=== PATIENT | female | born 1995 | race Caucasian/White ===

== ENCOUNTER 2016-12-30 23:41 | Emergency (ER) | payer OTHER, BC ==
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
[2016-12-30 23:56] VITALS: BP 123/81; PULSE 74; TEMP 97.5; BMI 21.0
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
[2016-12-31] MEDS ORDERED: ACETAMINOPHEN 325 MG TABLET (FP) PO ONE (00:30)
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
[2016-12-31] MEDS ORDERED: ACETAMINOPHEN 325 MG TABLET (FP) ONE (00:45)
[2016-12-31] MEDS ORDERED: IBUPROFEN 400 MG TABLET (FP) PO ONE ×2 (02:21→02:33)
== END 2016-12-31 02:41 | disposition home or self-care (01) ==
LOC: JER 23:41
DX: S13.4XXA Sprain of ligaments of cervical spine, initial encounter (principal); M62.838 Other muscle spasm; V49.49XA Driver injured in collision with other motor vehicles in traffic accident, initial encounter; Y92.488 Other paved roadways as the place of occurrence of the external cause; Y93.89 Activity, other specified
CPT/HCPCS: 70450-TC; 71010-TC; 72125-TC; 84703; 99283-25